=== PATIENT | female | born 1990 | race Two or more races ===

== ENCOUNTER 2023-09-19 09:18 | Emergency (ER) | payer OTHER ==
[~2023-09-19] VITALS: Ht 177.8 cm; Wt 70.3 kg
[2023-09-19 09:31] VITALS: BP 108/81; TEMP 99.1; O2SAT 99
== END 2023-09-19 11:26 | disposition home or self-care (01) ==
LOC: ER 09:27
DX: M25.531 Pain in right wrist (principal)
CPT/HCPCS: 73110